=== PATIENT | female | born 1955 | race Caucasian/White ===

== ENCOUNTER 2017-10-11 11:47 | Inpatient (IN) | payer MEDICAID, MEDICARE, OTHER ==
[2017-10-11] MEDS ORDERED: Iodixanol 320 MG/ML 200 ML BOTTLE IV ONE (11:48)
[2017-10-11] MEDS ORDERED: Lidocaine 2% Inj (20ml) ONE (11:48)
[2017-10-11] MEDS ORDERED: Midazolam 2 MG/2 ML VIAL ONE ×2 (11:48→13:54)
[2017-10-11] MEDS ORDERED: HEPARIN SODIUM/NS 2,000 ML IV ONE (11:48)
[2017-10-11] MEDS ORDERED: Metoprolol 1 mg/ml Inj IVP ONE (14:13)
[2017-10-11] MEDS ORDERED: Morphine 2 mg/ml ISec ONE ×2 (14:21→16:09)
[2017-10-11] MEDS ORDERED: Iodixanol 320 MG/ML 100 ML BOTTLE IV ONE (14:23)
[2017-10-11] MEDS ORDERED: Oxycodone/Acetaminophen 5/325 mg Tab PO PRN (14:51)
[2017-10-11] MEDS ORDERED: Sodium Chloride 0.45% 1,000 ML IV SCH ×2 (15:00→16:57)
[2017-10-11] MEDS ORDERED: Oxycodone/Acetaminophen 5/325 mg Tab ONE (15:46)
[2017-10-11] MEDS ORDERED: Nitroglycerin 50mg in D5W 50 MG/250 ML BOTTLE IV ONE (16:09)
[2017-10-11] MEDS: Nitroglycerin 50mg in D5W 50 MG/250 ML BOTTLE IV PRN ×2 (16:14→16:39)
--- NOTE | 2017-10-11 16:19 | CARD ---
APPROVED REPORT EKG Measurement Heart [id number] [place] 188P55 [id number] <Conclusion> Sinus rhythm Inferior infarct, age undetermined Abnormal ECG
[2017-10-11] MEDS ORDERED: Morphine 2 mg/ml ISec IVP PRN (16:26)
--- NOTE | 2017-10-11 16:47 | CARD ---
APPROVED REPORT EKG Measurement Heart [id number] [place] 132P52 [id number] <Conclusion> Normal sinus rhythm Possible Inferior infarct, age undetermined Abnormal ECG
[2017-10-11] MEDS ORDERED: Nitroglycerin 50mg in D5W 50 MG/250 ML BOTTLE IV PRN ×2 (16:55→17:03)
[2017-10-11 19:41] VITALS: BMI 28.0
[2017-10-11] MEDS ORDERED: Albuterol-Ipratrop 3 mg / 0.5 (3 ml) UD IH PRN (19:59)
--- NOTE | 2017-10-11 20:20 | CP.PCM.HP ---
<Juan Luis Rubio - Last Filed: 10/11/17 20:11> History of Present Illness - History of Present Illness History of Present Illness: Mrs. Mckay is a 62 year old female with a past medical history significant for DM2 and asthma who presents with a constant substernal chest pressure radiating to her right anterior chest wall after having cardiac cath with SOHA to LAD done earlier today. She reports that she did not have this before her procedure and has never had anything like this in the past. She denies any aggravating factors but endorses that the morphine she was given helped the chest pressure reduce to a 1/10 from a 5/10 on pain scale. She was also noted to be hypertensive to 170/80 after her procedure as well. She endorses a mild right sided headache and denies fever, chills, changes in her vision, neck pain/ stiffness, palpitations, syncope, leg swelling, SOB, cough, wheezing, abdominal pain, N/V/D, pain with urination, skin changes or any numbness/tingling/ weakness of any extremity. PMH: DM2 and Asthma PSH: Abdominoplasty (2006) Family History: Grandmother-Pancreatic cancer Social History: Smokes marijuana daily; Denies tobacco, alcohol or any other illicit drug use Allergies: NKDA Home Medications: As per MAR Present on Admission - Present on Admission Any Indicators Present on Admission: No Review of Systems - Review of Systems Review of Systems: As stated in HPI, otherwise negative Past Patient History - Infectious Disease Hx of Infectious Diseases: None - Tetanus Immunizations Tetanus Immunization: Unknown - Past Medical History & Family History Past Medical History?: Yes - Past Social History Smoking Status: Never Smoked - CARDIAC Hx Cardiac Disorders: Yes Other/Comment: Adm post cardiac cath today - PULMONARY Hx Respiratory Disorders: Yes Hx Asthma: Yes - NEUROLOGICAL Hx Neurological Disorder: No - HEENT Hx HEENT Problems: Yes (wears bifocals) - RENAL Hx Chronic Kidney Disease: No - ENDOCRINE/METABOLIC Hx Endocrine Disorders: Yes Hx Diabetes Mellitus Type 1: Yes - HEMATOLOGICAL/ONCOLOGICAL Hx Blood Disorders: No - INTEGUMENTARY Hx Dermatological Problems: No - MUSCULOSKELETAL/RHEUMATOLOGICAL Hx Musculoskeletal Disorders: No Hx Falls: Yes - GASTROINTESTINAL Hx Gastrointestinal Disorders: No - GENITOURINARY/GYNECOLOGICAL Hx Genitourinary Disorders: No - PSYCHIATRIC Hx Psychophysiologic Disorder: No Hx Emotional Abuse: No Hx Physical Abuse: No Hx Substance Use: (Marijuana) - SURGICAL HISTORY Hx Surgeries: Yes Hx Cardiac Catheterization: Yes Hx Coronary Stent: Yes Other/Comment: Aniceto vargas - ANESTHESIA Hx Anesthesia: No Meds Allergies/Adverse Reactions: Allergies Allergy/AdvReac Type Severity Reaction Status Date / Time No Known Allergies Allergy Verified 10/06/17 09:43 Physical Exam - Constitutional Appears: Non-toxic, No Acute Distress - Head Exam Head Exam: ATRAUMATIC, NORMAL INSPECTION, NORMOCEPHALIC - Eye Exam Eye Exam: EOMI, Normal appearance, PERRL. absent: Conjunctival injection, Nystagmus, Periorbital swelling, Periorbital tenderness, Scleral icterus Pupil Exam: NORMAL ACCOMODATION, PERRL. absent: Fixed, Irregular, Miosis, Mydriatic, Unequal - ENT Exam ENT Exam: Mucous Membranes Moist, Normal Exam, Normal External Ear Exam, Normal Oropharynx. absent: Mucous Membranes Dry - Neck Exam Neck exam: Positive for: Full Rom, Normal Inspection. Negative for: Lymphadenopathy, Meningismus, Tenderness, Thyromegaly - Respiratory Exam Respiratory Exam: Clear to Auscultation Bilateral, NORMAL BREATHING PATTERN. absent: Accessory Muscle Use, Chest Wall Tenderness, Decreased Breath Sounds, Prolonged Expiratory Phase, Rales, Rhonchi, Wheezes, Respiratory Distress, Stridor - Cardiovascular Exam Cardiovascular Exam: REGULAR RHYTHM, RRR, +S1, +S2. absent: Bradycardia, Tachycardia, Clicks, Diastolic murmur, Gallop, Irregular Rhythm, JVD, Rubs, +S4 , Systolic Murmur - GI/Abdominal Exam GI & Abdominal Exam: Normal Bowel Sounds, Soft. absent: Bruit, Diminished Bowel Sounds, Distended, Firm, Guarding, Hernia, Hyperactive Bowel Sounds, Hypoactive Bowel Sounds, Mass, Organomegaly, Pulsatile Mass, Rebound, Rigid, Tenderness - Extremities Exam Extremities exam: Positive for: full ROM, normal capillary refill, normal inspection, pedal pulses present. Negative for: calf tenderness, joint swelling , pedal edema, tenderness - Back Exam Back exam: FULL ROM, NORMAL INSPECTION. absent: CVA tenderness (L), CVA tenderness (R), muscle spasm, paraspinal tenderness, rash noted, tenderness, vertebral tenderness - Neurological Exam Neurological exam: Alert, CN II-XII Intact, Oriented x3 - Psychiatric Exam Psychiatric exam: Normal Affect, Normal Mood - Skin Skin Exam: Dry, Intact, Normal Color, Warm Additional comments: Cath insertion site wound dressing clean, dry and intact Results - Vital Signs Recent Vital Signs: Last Vital Signs Temp 98.3 F 10/11/17 18:06 Pulse 97 H 10/11/17 19:30 Resp 23 10/11/17 19:30 BP 137/70 10/11/17 19:30 Pulse Ox 97 10/11/17 18:30 Assessment & Plan - Assessment and Plan (Free Text) Assessment: 62 year old female with a past medical history significant for DM2 and asthma who presents with a constant substernal chest pressure radiating to her right anterior chest wall after having cardiac cath with SOHA to LAD done earlier today Plan: 1. Chest Pain s/p Cardiac Cath -Continue Nitro drip -ASA, Lipitor, and Plavix -Tylenol 650mg PO Q4H PRN, Morphine 2mg IVP Q4H and Percocet 5/325mg 2 tab PO Q4H PRN for pain control -Echo pending -AM EKG -Serial Troponins, one stat and one in AM 2. History of DM2 -SSI-Low and Accucheck ACHS -Continue home Levemir 10u HS 3. History of Asthma -Duonebs [id number] PRN -Supplemental oxygen via NC PRN GI Prophylaxis: Protonix DVT Prophylaxis: SCD's Patient seen and case discussed with attending, Dr. Nicholas. - Date & Time Date: 10/11/17 Time: 20:21 Decision To Admit - Pt Status Changed To: Hospital Disposition Of: Extended Recovery/Post Procedure - . Bed Request Type: Critical Care <Johnathan Nicholas - Last Filed: 10/12/17 06:10> Results - Vital Signs Recent Vital Signs: Last Vital Signs Temp 98.5 F 10/12/17 04:00 Pulse 86 10/12/17 05:58 Resp 10/12/17 04:00 BP 179/73 H 10/12/17 05:50 Pulse Ox 97 10/11/17 18:30 - Labs Labs: Laboratory Results - last 24 hr 10/11/17 19:45 Troponin I 0.06 Attending/Attestation - Attestation I have personally seen and examined this patient.: Yes I have fully participated in the care of the patient.: Yes I have reviewed all pertinent clinical information: Yes
--- NOTE | 2017-10-11 21:42 | CP.PCM.PN ---
Subjective - Date & Time of Evaluation Date of Evaluation: 10/11/17 Time of Evaluation: 14:20 - Subjective Subjective: Patient s/p LAD stent (SOHA) c/o Chest pain Angiogram and Aortogram were normal except some pinching of diags and Septal branch EKG unremarkable Patient is hypertensive Nitro drip ASA, Plavix, Statins Pain meds PRN Follow ROMIs Check ECHO in am Objective - Vital Signs/Intake and Output Vital Signs (last 24 hours): Temp Pulse Resp BP Pulse Ox 98.3 F 97 H 23 137/70 97 10/11/17 18:06 10/11/17 19:30 10/11/17 19:30 10/11/17 19:30 10/11/17 18:30 Intake and Output: 10/11/17 10/12/17 18:59 06:59 Intake Total 250 Balance 250 - Medications Medications: Current Medications Acetaminophen (Tylenol 325mg Tab) 650 mg PO Q4H PRN PRN Reason: Pain, Mild (1-3) Albuterol/Ipratropium (Duoneb 3 Mg/0.5 Mg (3 Ml) Ud) 3 ml IH [id number] PRN PRN Reason: Shortness of Breath Aspirin (Aspirin Chewable) 81 mg PO DAILY [facility] Atorvastatin Calcium (Lipitor) 10 mg PO DIN [facility] Clopidogrel Bisulfate (Plavix) 75 mg PO DAILY [facility] Sodium Chloride (Sodium Chloride 0.45%) 1,000 mls @ 10 mls/hr IV .Q24H [facility] Stop: 10/12/17 23:59 Nitroglycerin/Dextrose (Nitroglycerin 50 Mg/250 Ml D5w) 50 mg in 250 mls @ 6 mls/hr IV .Q24H PRN; Protocol; 20 MCG/MIN PRN Reason: Pain, moderate (4-7) Last Admin: 10/11/17 17:16 Dose: 20 mcg/min, 6 mls/hr Insulin Detemir (Levemir) 10 unit SC HS [facility] Insulin Human Regular (Humulin R Med) 0 units SC ACHS [facility] PRN Reason: Protocol Morphine Sulfate (Morphine) 2 mg IVP Q4H PRN PRN Reason: Pain, moderate (4-7) Last Admin: 10/11/17 15:45 Dose: 2 mg Ondansetron HCl (Zofran Inj) 4 mg IVP Q4H PRN PRN Reason: Nausea/Vomiting Last Admin: 10/11/17 15:45 Dose: 4 mg Oxycodone/Acetaminophen (Percocet 5/325 Mg Tab) 2 tab PO Q4H PRN PRN Reason: Pain, moderate (4-7) Stop: 10/14/17 14:52 Last Admin: 10/11/17 15:45 Dose: 2 tab Pantoprazole Sodium (Protonix Ec Tab) 40 mg PO ACB [facility]
[2017-10-11] MEDS: Insulin Reg-MEDIUM-Coverage SC SCH (21:52)
[2017-10-11] MEDS ORDERED: Insulin Detemir 100 units/ml Vial (Levemir) SC SCH (22:00)
--- NOTE | 2017-10-11 22:52 | CP.PCM.PCO ---
Assessment & Plan - Assessment and Plan (Free Text) Assessment: Pt seen and examined personally; I agree with the assessment and plan by the resident listed in the history and physical, however it will not allow me to sign off on that note at this time. It appears the patient was being treated at [facility] for colitis and diarrhea; developed chest discomfort and was found to have an NSTEMI. Patient was transferred to [facility] today for cardiac catheterization, after which received 1 SOHA to the LAD. After the procedure the patient developed substernal and right sided chest discomfort; placed on a nitroglycerin drip and transferred to the ICU. Patient appears improved and states her chest pain has almost resolved completely; will attempt to wean off NTG drip overnight.
[2017-10-12] MEDS ORDERED: Pantoprazole 40 mg EC Tab PO SCH (07:30)
[2017-10-12 07:39] LABS: BASO # 0.04 K/mm3 (0.0-2.0); BASO % 0.2 % (0.0-3.0); EOS # 0.2 (0.0-0.7); EOS % 1.3 % (1.5-5.0); GRAN # 12.62 (1.4-6.5); GRAN % 72.9 % (50.0-68.0); HEMOGLOBIN 14.1 g/dL (12.0-16.0); LYMPH # 3.4 (1.2-3.4); LYMPH % 19.4 % (22.0-35.0); MEAN CELL VOLUME 88.2 fl (80.0-105.0); MEAN CORPUSCULAR HEMOGLOBIN 29.8 pg (25.0-35.0); MEAN CORPUSCULAR HGB CONC 33.8 g/dl (31.0-37.0); MONO # 1.1 (0.1-0.6); MONO % 6.2 % (1.0-6.0); RBC 4.73 10^6/uL (3.5-6.1); RED CELL DISTRIBUTION WIDTH 13.2 % (11.5-14.5); WHITE BLOOD COUNT 17.3 10^3/ul (4.5-11.0)
[2017-10-12 07:47] LABS: ALB/GLOB RATIO 1.2 (1.1-1.8); ALBUMIN 3.8 g/dL (3.0-4.8); ALT/SGPT 32 U/L (7-56); AST/SGOT 45 U/L (14-36); BLOOD UREA NITROGEN 14 mg/dL (7-21); CALCIUM 9.4 mg/dL (8.4-10.5); GFR AFRICAN-AMERICAN > 60; GFR NON-AFRICAN AMERICAN > 60
[2017-10-12] MEDS: Insulin Reg-MEDIUM-Coverage SC SCH ×2 (08:28→16:00)
[2017-10-12 08:31] LABS: TROPONIN I 1.04 ng/mL
--- NOTE | 2017-10-12 10:45 | CP.PCM.PN ---
Subjective - Date & Time of Evaluation Date of Evaluation: 10/12/17 Time of Evaluation: 07:50 - Subjective Subjective: Pt seen and examined, denies cp, sob, reports feeling well. Objective - Vital Signs/Intake and Output Vital Signs (last 24 hours): Temp Pulse Resp BP Pulse Ox 98.8 F 90 18 154/59 H 95 10/12/17 08:00 10/12/17 10:00 10/12/17 08:30 10/12/17 10:00 10/12/17 08:30 Intake and Output: 10/12/17 10/12/17 06:59 18:59 Intake Total 555 Output Total 1600 Balance -1045 - Medications Medications: Current Medications Acetaminophen (Tylenol 325mg Tab) 650 mg PO Q4H PRN PRN Reason: Pain, Mild (1-3) Albuterol/Ipratropium (Duoneb 3 Mg/0.5 Mg (3 Ml) Ud) 3 ml IH [id number] PRN PRN Reason: Shortness of Breath Aspirin (Aspirin Chewable) 81 mg PO DAILY [facility] Last Admin: 10/12/17 10:35 Dose: Not Given Atorvastatin Calcium (Lipitor) 10 mg PO DIN [facility] Clopidogrel Bisulfate (Plavix) 75 mg PO DAILY [facility] Last Admin: 10/12/17 08:26 Dose: 75 mg Hydralazine HCl (Apresoline) 10 mg IVP Q6 PRN PRN Reason: Systolic Blood Pressure Last Admin: 10/12/17 05:50 Dose: 10 mg Sodium Chloride (Sodium Chloride 0.45%) 1,000 mls @ 10 mls/hr IV .Q24H [facility] Stop: 10/12/17 23:59 Nitroglycerin/Dextrose (Nitroglycerin 50 Mg/250 Ml D5w) 50 mg in 250 mls @ 6 mls/hr IV .Q24H PRN; Protocol; 20 MCG/MIN PRN Reason: Pain, moderate (4-7) Last Titration: 10/12/17 02:00 Dose: 0 mcg/min, 0 mls/hr Insulin Detemir (Levemir) 10 unit SC HS [facility] Last Admin: 10/11/17 22:27 Dose: 10 unit Insulin Human Regular (Humulin R Med) 0 units SC ACHS [facility] PRN Reason: Protocol Last Admin: 10/12/17 08:28 Dose: 3 units Lisinopril (Zestril) 5 mg PO DAILY [facility] Last Admin: 10/12/17 10:00 Dose: 5 mg Metoprolol Tartrate (Lopressor) 12.5 mg PO BID [facility] Last Admin: 10/12/17 08:26 Dose: 12.5 mg Morphine Sulfate (Morphine) 2 mg IVP Q4H PRN PRN Reason: Pain, moderate (4-7) Last Admin: 10/11/17 15:45 Dose: 2 mg Ondansetron HCl (Zofran Inj) 4 mg IVP Q4H PRN PRN Reason: Nausea/Vomiting Last Admin: 10/11/17 15:45 Dose: 4 mg Oxycodone/Acetaminophen (Percocet 5/325 Mg Tab) 2 tab PO Q4H PRN PRN Reason: Pain, moderate (4-7) Stop: 10/14/17 14:52 Last Admin: 10/11/17 15:45 Dose: 2 tab Pantoprazole Sodium (Protonix Ec Tab) 40 mg PO ACB [facility] Last Admin: 10/12/17 08:26 Dose: 40 mg - Labs Labs: 10/12/17 06:00 10/12/17 06:00 - Constitutional Appears: Non-toxic, No Acute Distress - Eye Exam Eye Exam: Normal appearance - ENT Exam ENT Exam: Mucous Membranes Moist - Neck Exam Neck Exam: Full ROM - Respiratory Exam Respiratory Exam: Clear to Ausculation Bilateral, NORMAL BREATHING PATTERN - Cardiovascular Exam Cardiovascular Exam: REGULAR RHYTHM, +S1, +S2 - GI/Abdominal Exam GI & Abdominal Exam: Soft, Normal Bowel Sounds - Extremities Exam Extremities Exam: Full ROM, Normal Inspection - Neurological Exam Neurological Exam: Alert, Awake, Oriented x3 Assessment and Plan - Assessment and Plan (Free Text) Assessment: 62yo female s/p cardiac stent CAD s/p Stents Asthma Colitis Recommend: - supp o2 as needed - ASA, Plavix, Statin - Betablocker - Check Lipid Panel, HgbA1C - ECHO - follow up cardiology - Cont with antibiotics for colitis - GI ppx - DVT ppx - stable, transfer to telemetry
[2017-10-12 11:14] VITALS: O2SAT 94
--- NOTE | 2017-10-12 14:00 | RAD ---
HISTORY: Chest pain COMPARISON: No prior. FINDINGS: LUNGS: No active pulmonary disease. PLEURA: No significant pleural effusion identified, no pneumothorax apparent. CARDIOVASCULAR: Normal. OSSEOUS STRUCTURES: No significant abnormalities. VISUALIZED UPPER ABDOMEN: Normal. OTHER FINDINGS: None. IMPRESSION: No active disease.
[2017-10-12 16:03] VITALS: BP 122/75; PULSE 107; RESP 56
[2017-10-12 16:04] VITALS: TEMP 99.9
--- NOTE | 2017-10-12 16:34 | CARD ---
APPROVED REPORT EKG Measurement Heart [id number] [place] 124P47 [id number] <Conclusion> Normal sinus rhythm Possible Inferior infarct, age undetermined Abnormal ECG
--- NOTE | 2017-10-12 17:25 | CARD ---
APPROVED REPORT EKG Measurement Heart [id number] [place] 130P52 [id number] <Conclusion> Normal sinus rhythm Inferior infarct, age undetermined Abnormal ECG
--- NOTE | 2017-10-12 18:09 | CARD ---
APPROVED REPORT EXAM: Two-dimensional and M-mode echocardiogram with Doppler and color Doppler. INDICATION Cardiac Disease: CAD POST CATH 2D DIMENSIONS Left Atrium (2D)2.5 (1.6-4.0cm)IVSd1.0 (0.7-1.1cm) LVDd3.6 (3.9-5.9cm)PWd1.1 (0.7-1.1cm) LVDs2.6 (2.5-4.0cm)FS (%) 27.1 % LVEF (%)53.6 (>50%) M-Mode DIMENSIONS Aortic Root3.30 (2.2-3.7cm)Aortic Cusp Exc.1.80 (1.5-2.0cm) Aortic Valve AoV Peak Syrnurye100.0cm/Rodrick Peak GR.11mmHg Mitral Valve MV E Imrrvwpo16.3cm/sMV A Grdbhmxn97.2cm/sE/A ratio0.8 TDI Lateral E' Peak V11.10cm/sMedial E' Peak V9.75cm/sE/Lateral E'6.1 E/Medial E'6.9 Pulmonary Valve PV Peak Difnvews477.0cm/sPV Peak Grad.4mmHg Tricuspid Valve TR Peak Bsndfibl411er/sRAP CXHENKIP21rnDdCF Peak Gr.26mmHg [id number] LEFT VENTRICLE The left ventricle is normal size. There is normal left ventricular wall thickness. The left ventricular function is normal. The left ventricular ejection fraction is within the normal range. There is normal LV segmental wall motion. Transmitral Doppler flow pattern is Grade I-abnormal relaxation pattern. RIGHT VENTRICLE The right ventricle is normal size. There is normal right ventricular wall thickness. The right ventricular systolic function is normal. ATRIA The left atrium size is normal. The right atrium size is normal. AORTIC VALVE The aortic valve is normal in structure. No aortic regurgitation is present. There is no aortic valvular stenosis. MITRAL VALVE The mitral valve is normal in structure. There is no mitral valve regurgitation noted. TRICUSPID VALVE The tricuspid valve is normal in structure. There is mild pulmonary hypertension. GREAT VESSELS The aortic root is normal in size. The IVC is normal in size and collapses >50% with inspiration. PERICARDIAL EFFUSION There is a trace loculated anterior pericardial effusion. <Conclusion> The left ventricle is normal size. There is normal left ventricular wall thickness. The left ventricular function is normal. The left ventricular ejection fraction is within the normal range. There is normal LV segmental wall motion. Transmitral Doppler flow pattern is Grade I-abnormal relaxation pattern. There is mild pulmonary hypertension.
--- NOTE | 2017-10-12 19:40 | CP.PCM.DIS ---
<[facility] - Last Filed: 10/12/17 19:34> Provider - Provider Date of Admission: 10/11/17 20:15 Attending physician: Shaina Kenney MD Time Spent in preparation of Discharge (in minutes): 35 Diagnosis - Discharge Diagnosis (1) Diabetes Status: Acute (2) NSTEMI (non-ST elevated myocardial infarction) Status: Acute Hospital Course - Lab Results Lab Results: Most Recent Lab Values WBC 17.3 10^3/ul (4.5-11.0) H 10/12/17 06:00 RBC 4.73 10^6/uL (3.5-6.1) 10/12/17 06:00 Hgb 14.1 g/dL (12.0-16.0) 10/12/17 06:00 Hct 41.7 % (36.0-48.0) 10/12/17 06:00 MCV 88.2 fl (80.0-105.0) 10/12/17 06:00 MCH 29.8 pg (25.0-35.0) 10/12/17 06:00 MCHC 33.8 g/dl (31.0-37.0) 10/12/17 06:00 RDW 13.2 % (11.5-14.5) 10/12/17 06:00 Plt Count 286 10^3/uL (120.0-450.0) 10/12/17 06:00 MPV 11.0 fl (7.0-11.0) 10/12/17 06:00 Gran % 72.9 % (50.0-68.0) H 10/12/17 06:00 Lymph % (Auto) 19.4 % (22.0-35.0) L 10/12/17 06:00 Terry % (Auto) 6.2 % (1.0-6.0) H 10/12/17 06:00 Eos % (Auto) 1.3 % (1.5-5.0) L 10/12/17 06:00 Baso % (Auto) 0.2 % (0.0-3.0) 10/12/17 06:00 Gran # 12.62 (1.4-6.5) H 10/12/17 06:00 Lymph # 3.4 (1.2-3.4) 10/12/17 06:00 Terry # 1.1 (0.1-0.6) H 10/12/17 06:00 Eos # 0.2 (0.0-0.7) 10/12/17 06:00 Baso # 0.04 K/mm3 (0.0-2.0) 10/12/17 06:00 Sodium 136 mmol/L (132-148) 10/12/17 06:00 Potassium 3.8 mmol/L (3.6-5.0) 10/12/17 06:00 Chloride 102 mmol/L (98-107) 10/12/17 06:00 Carbon Dioxide 24 mmol/L (21-33) 10/12/17 06:00 Anion Gap 14 (10-20) 10/12/17 06:00 BUN 14 mg/dL (7-21) 10/12/17 06:00 Creatinine 0.6 mg/dl (0.7-1.2) L 10/12/17 06:00 Est GFR ( Amer) > 60 10/12/17 06:00 Est GFR (Non-Af Amer) > 60 10/12/17 06:00 POC Glucose (mg/dL) 237 mg/dL (65-110) H 10/12/17 11:18 Random Glucose 245 mg/dL (70-110) H 10/12/17 06:00 Calcium 9.4 mg/dL (8.4-10.5) 10/12/17 06:00 Total Bilirubin 0.5 mg/dL (0.2-1.3) 10/12/17 06:00 AST 45 U/L (14-36) H D 10/12/17 06:00 ALT 32 U/L (7-56) 10/12/17 06:00 Alkaline Phosphatase 159 U/L (38-126) H 10/12/17 06:00 Troponin I 1.04 ng/mL H* D 10/12/17 06:00 Total Protein 7.1 g/dL (5.8-8.3) 10/12/17 06:00 Albumin 3.8 g/dL (3.0-4.8) 10/12/17 06:00 Globulin 3.3 gm/dL 10/12/17 06:00 Albumin/Globulin Ratio 1.2 (1.1-1.8) 10/12/17 06:00 - Hospital Course Hospital Course: 62 year old female with a past medical history significant for DM2 and asthma who presents with a constant substernal chest pressure radiating to her right anterior chest wall after having cardiac cath with SOHA to LAD done earlier in the day. She was admitted to the ICU for monitoring and started on a nitro drip with subsequent resolution of hypertension and chest pain. Today, patient feels well and is anxious to go home. She denies any chest pain, shortness of breath, headache, palpitation, nausea, vomiting, diaphoresis, arm pain. Strict adherence to medications, especially DAPT was stressed, and patient verbalized understanding and agreement. Patient was also counselled on glycemic control. Prescriptions for new medications was sent to patient's pharmacy, all questions were answered to her satisfaction, and patient was discharged to home. Discharge Exam - Head Exam Head Exam: ATRAUMATIC, NORMAL INSPECTION, NORMOCEPHALIC - Eye Exam Eye Exam: EOMI, Normal appearance, PERRL - ENT Exam ENT Exam: Mucous Membranes Moist - Neck Exam Neck exam: Normal Inspection - Respiratory Exam Respiratory Exam: Clear to PA & Lateral, NORMAL BREATHING PATTERN - Cardiovascular Exam Cardiovascular Exam: RRR, +S1, +S2. absent: JVD - GI/Abdominal Exam GI & Abdominal Exam: Normal Bowel Sounds, Soft, Unremarkable. absent: Tenderness - Extremities Exam Extremities exam: normal inspection Additional comments: Groin access site dressing clean, dry, and intact. No bleeding. No hematoma. No bruit. - Neurological Exam Neurological exam: Alert, Oriented x3 - Psychiatric Exam Psychiatric exam: Normal Affect, Normal Mood - Skin Skin Exam: Dry, Intact, Normal Color Discharge Plan - Discharge Medications Prescriptions: Aspirin [Aspirin Chewable] 81 mg PO DAILY #30 chew Atorvastatin [Lipitor] 10 mg PO DIN #30 tab Clopidogrel [Plavix] 75 mg PO DAILY #30 tab Metoprolol Succinate XL [Toprol XL] 25 mg PO BRK #30 tab - Follow Up Plan Condition: GOOD Disposition: HOME/ ROUTINE Instructions: Metoprolol (By mouth), Aspirin (By mouth), Atorvastatin (By mouth ), Clopidogrel (By mouth), Myocardial Infarction (DC), Myocardial Infarction ( GEN), Heart Catheterization (GEN) Additional Instructions: 1. Continue to take all medications as prescribed. New prescriptions for Metoprolol, Aspirin, Plavix, and Lipitor sent to [facility] on [address] 2. Do not stop taking aspirin or plavix for anything, unless instructed by your physician 3. Continue current diabetes regimen as instructed by your physician 4. Follow up with your primary care doctor within 1 week 5. Follow up with Dr. Carrasco within 2 weeks 6. 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 For any new or worsening concerns, contact your PCP immediately or return to the ER Referrals: Tomás Carrasco MD [Family Provider] - Pieter Downing Jr., MD [Medical Doctor] - <Shaina Kenney - Last Filed: 10/13/17 16:24> Provider - Provider Date of Admission: 10/11/17 20:15 Attending physician: Shaina Kennye MD Hospital Course - Lab Results Lab Results: Micro Results 10/11/17 20:00 Nose MRSA Culture (Admit) - Final MRSA NOT DETECTED Most Recent Lab Values WBC 17.3 10^3/ul (4.5-11.0) H 10/12/17 06:00 RBC 4.73 10^6/uL (3.5-6.1) 10/12/17 06:00 Hgb 14.1 g/dL (12.0-16.0) 10/12/17 06:00 Hct 41.7 % (36.0-48.0) 10/12/17 06:00 MCV 88.2 fl (80.0-105.0) 10/12/17 06:00 MCH 29.8 pg (25.0-35.0) 10/12/17 06:00 MCHC 33.8 g/dl (31.0-37.0) 10/12/17 06:00 RDW 13.2 % (11.5-14.5) 10/12/17 06:00 Plt Count 286 10^3/uL (120.0-450.0) 10/12/17 06:00 MPV 11.0 fl (7.0-11.0) 10/12/17 06:00 Gran % 72.9 % (50.0-68.0) H 10/12/17 06:00 Lymph % (Auto) 19.4 % (22.0-35.0) L 10/12/17 06:00 Terry % (Auto) 6.2 % (1.0-6.0) H 10/12/17 06:00 Eos % (Auto) 1.3 % (1.5-5.0) L 10/12/17 06:00 Baso % (Auto) 0.2 % (0.0-3.0) 10/12/17 06:00 Gran # 12.62 (1.4-6.5) H 10/12/17 06:00 Lymph # 3.4 (1.2-3.4) 10/12/17 06:00 Terry # 1.1 (0.1-0.6) H 10/12/17 06:00 Eos # 0.2 (0.0-0.7) 10/12/17 06:00 Baso # 0.04 K/mm3 (0.0-2.0) 10/12/17 06:00 Sodium 136 mmol/L (132-148) 10/12/17 06:00 Potassium 3.8 mmol/L (3.6-5.0) 10/12/17 06:00 Chloride 102 mmol/L (98-107) 10/12/17 06:00 Carbon Dioxide 24 mmol/L (21-33) 10/12/17 06:00 Anion Gap 14 (10-20) 10/12/17 06:00 BUN 14 mg/dL (7-21) 10/12/17 06:00 Creatinine 0.6 mg/dl (0.7-1.2) L 10/12/17 06:00 Est GFR ( Amer) > 60 10/12/17 06:00 Est GFR (Non-Af Amer) > 60 10/12/17 06:00 POC Glucose (mg/dL) 237 mg/dL (65-110) H 10/12/17 11:18 Random Glucose 245 mg/dL (70-110) H 10/12/17 06:00 Calcium 9.4 mg/dL (8.4-10.5) 10/12/17 06:00 Total Bilirubin 0.5 mg/dL (0.2-1.3) 10/12/17 06:00 AST 45 U/L (14-36) H D 10/12/17 06:00 ALT 32 U/L (7-56) 10/12/17 06:00 Alkaline Phosphatase 159 U/L (38-126) H 10/12/17 06:00 Troponin I 1.04 ng/mL H* D 10/12/17 06:00 Total Protein 7.1 g/dL (5.8-8.3) 10/12/17 06:00 Albumin 3.8 g/dL (3.0-4.8) 10/12/17 06:00 Globulin 3.3 gm/dL 10/12/17 06:00 Albumin/Globulin Ratio 1.2 (1.1-1.8) 10/12/17 06:00 Attending/Attestation - Attestation I have personally seen and examined this patient.: Yes I have fully participated in the care of the patient.: Yes I have reviewed all pertinent clinical information, including history, physical exam and plan: Yes Notes (Text): I have seen and examined the patient at bedside. Agree with the above note with the following additions/ exceptions: Briefly this is 62 year old female with history of DM-2, asthma who was admitted overnight for management of chest pain and uncontrolled hypertension post SOHA placement. Patient was originally admitted in [facility] and was transferred to [facility] [place] cardiac cath. This morning she denies any complaints and wants to be discharged. Our team reached out to PMD Dr Downing and Dr Danilo England who decided that patient can be discharged from [facility]. 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 Her medications were adjusted. She was advised to take aspirin, plavix, lipitor and metoprolol. Continue diabetes medications. Chest pain has resolved and her BP has improved. Advised to follow up with PMD Dr Downing and Dr Carrasco within 3-[address] Shaina Kenney
--- NOTE | 2017-10-18 08:31 | CARDCATH ---
PROCEDURE DATE: 10/11/2017 PROCEDURE: Percutaneous coronary intervention and drug-eluting stent placement of the mid left anterior descending coronary artery. CLINICAL INDICATIONS: 1. Chest pain. 2. Non-ST elevation myocardial infarction and coronary artery disease. 3. Diabetes. 4. Hyperlipidemia. REFERRING PHYSICIAN: Pieter Downing MD PERFORMING PHYSICIAN: Tomás Carrasco MD PROCEDURE: After informed consent, the patient was prepped and draped in the usual sterile fashion. A 2% lidocaine was given in the right groin for local anesthesia. Using micropuncture technique, 6-Slovenian sheath was introduced into the right common femoral artery. The patient was preloaded with aspirin, Plavix, and IV heparin. ACT was maintained above 250 throughout the procedure. XBLAD 3.5, 6-Slovenian guided catheter was engaged into left main coronary artery. Contrast injected. Left coronary angiogram was performed. Left coronary angiogram has confirmed with LAD 85% concentric stenosis. There was a GRACIELA-3 flow noted distally. Left anterior descending coronary artery was threaded using Runthrough coronary wire. The mid LAD lesion was predilated using 2.5 x 15 compliant balloon. Later this lesion was stented using 3.0 x 28 Xience Alpine drug-eluting stent. Excellent final angiographic results with a brisk GRACIELA-3 flow in the distal LAD noted. CONCLUSION: 1. Successful mid left anterior descending intervention with drug-eluting stent. 2. Excellent final angiographic results with no complications noted. RECOMMENDATIONS: Recommend dual antiplatelet therapy for one year, followed by aspirin, statin, beta-blockers and FERDINAND inhibitors for life. Tomás Carrasco MD
== END 2017-10-12 16:21 | disposition home or self-care (01) | DRG 247 ==
LOC: CATH 11:47 → CCU 17:23 → CATH 21:18
PROVIDERS: ADMIT Internal Medicine Cardiovascular Disease; ATTEND Hospitalist
PROC: 027034Z Dilation of Coronary Artery, One Artery with Drug-eluting Intraluminal Device, Percutaneous Approach (ICD-10-PCS; principal; 2017-10-11)
DX: I21.4 Non-ST elevation (NSTEMI) myocardial infarction (principal); E11.9 Type 2 diabetes mellitus without complications; I25.10 Atherosclerotic heart disease of native coronary artery without angina pectoris; I10 Essential (primary) hypertension; K52.9 Noninfective gastroenteritis and colitis, unspecified; J45.909 Unspecified asthma, uncomplicated; F12.90 Cannabis use, unspecified, uncomplicated; Z79.84 Long term (current) use of oral hypoglycemic drugs